=== PATIENT | female | born 1985 | race African-American/Black ===

== ENCOUNTER 2017-04-01 08:14 | Emergency (ER) | payer SELFPAY ==
[~2017-04-01] VITALS: Ht 175.3 cm; Wt 99.0 kg
[~2017-04-01 08:14] MED LIST: CEPH-569; HYDR-3511; SULF1TAB48
[2017-04-01] MEDS ORDERED: KETOROLAC 60MG/2ML VIAL IM STA (10:16)
[2017-04-01 10:57] LABS: BASOPHILS % 0.5 % (0.0-2.0); EOSINOPHILS % 0.4 % (0.0-5.0); HEMATOCRIT. 32.2 % (36.0-48.0); HEMOGLOBIN. 10.3 g/dL (12.0-16.0); LYMPHOCYTES % 20.5 % (20.0-50.0); MEAN CORPUSCULAR HEMOGLOBIN 26.9 pg (28.0-32.0); MEAN CORPUSCULAR VOLUME 83.5 fL (81.0-99.0); MONOCYTES % 9.4 % (2.0-8.0); NEUTROPHILS % 69.2 % (40.0-76.0); PLATELET 243 x1000/uL (130-400); RED BLOOD CELL COUNT 3.85 mill/uL (4.2-5.4); RED CELL DISTRIBUTION WIDTH 15.4 % (11.6-14.6)
[2017-04-01 11:08] LABS: HCG SCREEN NEGATIVE
[2017-04-01 11:11] LABS: CARBON DIOXIDE 25 mEq/L (21-32); CHLORIDE 112 mEq/L (98-107)
[2017-04-01 11:34] LABS: CLARITY URINE CLOUDY (CLEAR); COLOR URINE YELLOW (YELLOW); GLUCOSE URINE NEGATIVE (NEGATIVE); KETONES URINE NEGATIVE (NEGATIVE); LEUKOCYTE ESTERASE URINE 3+ (NEGATIVE); NITRITE URINE POSITIVE (NEGATIVE); OCCULT BLOOD URINE TRACE (NEGATIVE); PH URINE 5.5 (4.5-8.0); PROTEIN URINE NEGATIVE (NEGATIVE); SPECIFIC GRAVITY URINE 1.021 (1.005-1.030); UROBILINOGEN URINE 0.2 E.U./dL (0.2-1.0)
[2017-04-01 13:09] VITALS: BP 101/57
== END 2017-04-01 13:25 | disposition home or self-care (01) ==
LOC: ER 09:58
DX: N39.0 Urinary tract infection, site not specified (principal); N20.0 Calculus of kidney; Z79.899 Other long term (current) drug therapy; F17.210 Nicotine dependence, cigarettes, uncomplicated
CPT/HCPCS: 36415; 76700; 80053; 81001; 81025; 83690; 84703; 85025; 96372; 99285; J1885